=== PATIENT | male | born 1990 | race Caucasian/White ===

== ENCOUNTER → 2022-04-05 | Outpatient (CLI) | payer OTHER, SELFPAY ==
--- NOTE | 2022-04-05 09:43 | RAD_ITS ---
EXAM: XR CERVICAL SPINE, 4 OR 5 VIEWS CLINICAL INDICATION: SUSPECTED L THORACIC SYNDROME TECHNIQUE: Frontal, lateral and bilateral oblique views of the cervical spine. This report was created using [employer] report generation technology. COMPARISON: None. FINDINGS: VERTEBRAE: Unremarkable. Preserved vertebral body height. No acute fracture. No spondylolisthesis. Preservation of the normal cervical lordosis. No significant facet arthropathy. DISC SPACES: Unremarkable. Disc spaces are maintained. SOFT TISSUES: Unremarkable. No prevertebral soft tissue widening. LUNG APICES: Clear. RAD/Cerv Spine 4 or 5 Views IMPRESSION: No evidence of acute fracture or spondylolisthesis. Electronically Signed: Dominguez Marsh MD at 16:58 EST ,
== END | disposition home or self-care (01) ==
PROVIDERS: PCP Family Medicine; Referring Provider Family Medicine; Visit Provider Family Medicine
DX: G54.0 Brachial plexus disorders (principal)
CPT/HCPCS: 72050

== ENCOUNTER → 2022-04-17 | Outpatient (CLI) | payer OTHER, SELFPAY ==
--- NOTE | 2022-04-17 13:55 | ART_ITS ---
Reason For Study: Left arm pain Procedure A bilateral upper extremity continuous wave Doppler with analog waveform analysis and segmental pressures. Performed with thoracic outlet syndrome protocol. Left Segmental Pressures Left brachial= 134mmHg. Left ulnar= 158mmHg. Left radial= 158mmHg. The left radial waveforms are triphasic. The left ulnar waveforms are triphasic. Right Segmental Pressures Right brachial= 138mmHg. Right ulnar= 155mmHg. Right radial= 175mmHg. The right radial waveforms are triphasic. The right ulnar waveforms are triphasic. Indices The right wrist-brachial index by the ulnar artery is 1.12. The right wrist-brachial index by the radial artery is 1.27. The left wrist-brachial index by the ulnar artery is 1.14. The left wrist- brachial index by the radial artery is 1.14. VL/Upper Extremity Arterial Study Interpretation Summary Right wrist-brachial index 1.27 , normal. Doppler/PVR waveforms of the right ar m normal at rest. No change in arterial waveforms on the right provoked by maneuvers. Left wrist-brachial index 1.14, normal. Doppler/PVR waveforms of the left arm n ormal at rest. No change in arterial waveforms on the left provoked by maneuvers. Ordering Physician: Gareth Clancy Referring Physician: Gareth Clancy Performed By: Jacque Hernandez RVT
== END | disposition home or self-care (01) ==
PROVIDERS: PCP Family Medicine; Referring Provider Family Medicine; Visit Provider Family Medicine
DX: M79.602 Pain in left arm (principal); G54.0 Brachial plexus disorders
CPT/HCPCS: 93923

== ENCOUNTER 2022-07-14 08:00 | Outpatient (RCR) | payer OTHER, SELFPAY ==
--- NOTE | 2022-04-28 08:48 | HP.PTEVAL ---
Patient's Visit Information MIGUE ARIAS is a 32 year old M referred to Physical Therapy by Dr. Gareth Clancy DO with a diagnosis of L arm pain. Date of Evaluation: 04/28/22 Physical Therapist: ANA DeanT, OCS, CSCS - Visit Plan Frequency: 2x /Week Duration: 4-6 Weeks Plan: 2x/week for 3-6 for. 1. STM and thermal US to L neck, stretch UT and lev scap L, work on ext rotation of L shoulder PROM. 2. strengthen posture and RC and progress to HEP. - Subjective Broke collarbone and shoulder in HS. Has had progressive pain over the last year with more pain in L shoulder and it has moved down with tingling into arm and hand and up into L side of neck. Can do his job but is defintiely uncomfortable. 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 had an US for nerve check and was OK but may need MRI. Had x ray shoulder and neck and OK. Sleep can wake up with tingling many nights.has had that for years. Neck started hurting at New Years for no reason. Basic aDLs are fine. Hobbies: hunting fishing are going OK but uncomfy. - Pain L arm Pain Intensity (Out of 10): 0 Pain Intensity Range: 0, 6 Comment: tingly in hand slightly - Objective Walks and trasnfers bed and chair without difficulty. Posture is slightly forward head and tilts head L slightly. cervical AROM is WFL at 70 ext, 60 L rotation and 80 R rotation with just some pulling L neck. SB are full but tight on L UT. - c/s compression test, only discomfort with stretch L neck. UE AROM WFL shoulder flex and IR symmterical, only ext rotation at neutral and 90 limited 5 degrees on L vs R and feels tight. Elbow and wrist AROM WFL. Tender slightly in L UT and lev scap. reflexes 2/3 bi and tri B. Sensation UE WNL to gross light touch. Strength wrist and elbows 5/5, rotators shoulder 4 B and popping on L with excessive humeral head movement. 4+ L elevation adn 5 R. - HK, - neer, - ext rotation lag, - drop arm. slight positive sulcus L. - Balance/Special Test Scores Quick DASH Score: 15.9075 - Goals Goal 1:: Full aROM L shoulder and neck without tightness or pain Goal Time Frame: 4-6 Weeks Goal 2:: Pt feel tingling and neck pain abolished and shoulder 755 improved to 2/10 at worst. Goal Time Frame: 4-6 Weeks Goal 3:: Sleep without waking due to or with discomfort Goal Time Frame: 4-6 Weeks Goal 4:: Quick dash score 12 or better Goal Time Frame: 4-6 Weeks Goal 5:: I hep to minimize future problems of stretch neck adn strength posture and cuff. Goal Time Frame: 4-6 Weeks - Rehabilitation Potential Physical Therapy Diagnosis: Likely soft tissue L neck and shoulder inflammation causing pain. Rehabilitation Potential: Good - Anticipated Interventions Patient/Client Instruction: Educate patient on: Condition, Plan of Care For the Purpose of:: To decrease pain, To increase ROM, To improve nutrient delivery to tissue, To improve muscle performance and motor function, To increase tolerance to activity/condition/position Therapeutic Exercise to Include: Strength training, Postural training, Flexibilty training, Passive ROM, Active ROM For the Purpose of:: To decrease pain, To increase ROM, To improve muscle performance and motor function, To increase tolerance to activity/condition/position, To improve gait and locomotor functions Manual Therapy Techniques to Include: Mobilization, Soft tissue mobilization For the Purpose of:: To decrease pain, To increase ROM Ultrasound (thermal/non thermal): Yes - nonthermal L lev scap/UT For the Purpose of:: To decrease pain, To decrease swelling/inflammation, To improve nutrient delivery to tissue Thank you for the opportunity to evaluate your patient. For Medicare and Medicare HMO plans, please review the plan of care and approve it. It will need to be FAXED BACK to us at [phone] for Medicare purposes. For Medicare only, by signing this I certify the plan of care. Please let me know if there are questions or concerns regarding this plan of care. Physician Signature: Date:
--- NOTE | 2022-06-02 08:26 | HP.PTREVAL_ITS ---
Dr. Gareth Clancy, DO, It has been my pleasure to treat MIGUE ARIAS over the last 7 visits for L arm pain. Please see the progress note below for an update on the physical therapy plan of care! Subjective: I feel much better. Tingling and numbness is mostly gone and only intermittent adn less intense. mornings much easier. Tingling is daily but does not last long when he modifies activity and stretches. Neck pain is intermittent and still an issue with sharp pains on L side into scap and intermittent MUNOZ. Objective/Function: 80 B rotation c/s and 80 extension without pain today. UE AROM symmetrical and WFL on ext rotation and others. 4+/5 UE strength without myotomal problems. Doing very well and wishes to try at home vs continued PT and f/u in 3 weeks. this is appropriate. Plan Plan: f/u 3 weeks to ensure progress and possibly teach TB adduction, pull downs, ext rotation and prone ex if needed. Balance/Gait/Functional tests - Balance/Special Test Scores Quick DASH Score: 11.3625 Goals Goal 1:: Full aROM L shoulder and neck without tightness or pain Goal Time Frame: 4-6 Weeks Goal Progress: Goal Met Goal 2:: Pt feel tingling and neck pain abolished and shoulder 755 improved to 2/10 at worst. Goal Time Frame: 4-6 Weeks Goal Progress: Progressing Goal 3:: Sleep without waking due to or with discomfort Goal Time Frame: 4-6 Weeks Goal Progress: Progressing Goal 4:: Quick dash score 12 or better Goal Time Frame: 4-6 Weeks Goal Progress: Not Progressing Goal 5:: I hep to minimize future problems of stretch neck adn strength posture and cuff. Goal Time Frame: 4-6 Weeks Goal Progress: Goal Met Anticipated Interventions Patient/Client Instruction: Educate patient on: Condition, Plan of Care For the Purpose of:: To decrease pain, To increase ROM, To improve nutrient delivery to tissue, To improve muscle performance and motor function, To increase tolerance to activity/condition/position Therapeutic Exercise to Include: Strength training, Postural training, Flexibilty training, Passive ROM, Active ROM For the Purpose of:: To decrease pain, To increase ROM, To improve muscle perf ormance and motor function, To increase tolerance to activity/condition/position, To improve gait and locomotor functions Manual Therapy Techniques to Include: Mobilization, Soft tissue mobilization For the Purpose of:: To decrease pain, To increase ROM Ultrasound (thermal/non thermal): Yes - nonthermal L lev scap/UT For the Purpose of:: To decrease pain, To decrease swelling/inflammation, To improve nutrient delivery to tissue Please do not hesitate to contact me at [phone] by phone or if you have questions or concerns regarding this new plan of care! Sincerely, Silvano Mccullough, DPT, OCS, CSCS
--- NOTE | 2022-06-22 07:55 | HP.PTREVAL_ITS ---
Dr. Gareth Clancy, DO, It has been my pleasure to treat MIGUE ARIAS over the last 8 visits for L arm pain. Please see the progress note below for an update on the physical therapy plan of care! Subjective: Still about the same as last time. Still minor sharp pain with lifting hand to head. Still gets tingling adn numbness with exercises. Sharp pain on L side of neck into shoulder with stretches and looking down and to the right. Talked with Aston and Objective/Function: 85 AROM B rotation with slight end range r pain on L side trasniently, no tingling today. Full ext 85 without pain. Max tender and knots in l lev scap. Overall ROM great but still some pain with lev scap interaactions and knots. Plan Plan: 2x/week for 2-4 weeks for. 1. US thermal to L lev scap. 2. DTR to same. Monitor home strength and stretching for progression needs. Add rhomboid stretching next session. New goals and POC and fair prognosis based on only soft tissue problems in evaluation today. Balance/Gait/Functional tests - Balance/Special Test Scores Quick DASH Score: 11.3625 Goals Goal 1:: Full aROM L shoulder and neck without tightness or pain Goal Time Frame: 4-6 Weeks Goal Progress: Goal Met Goal 2:: Pt feel tingling and neck pain abolished and shoulder 755 improved to 2/10 at worst. Goal Time Frame: 4-6 Weeks Goal Progress: Progressing, approp Goal 3:: Sleep without waking due to or with discomfort Goal Time Frame: 4-6 Weeks Goal Progress: Goal Met Goal 4:: Quick dash score 12 or better Goal Time Frame: 4-6 Weeks Goal Progress: Not Progressing Goal 5:: I hep to minimize future problems of stretch neck adn strength posture and cuff. Goal Time Frame: 4-6 Weeks Goal Progress: Goal Met Goal 6:: Tenderness in L lev scap and pain with stretch and contraction gone. Goal Time Frame: 2-4 Weeks Goal Progress: NEW GOAL Anticipated Interventions Patient/Client Instruction: Educate patient on: Condition, Plan of Care For the Purpose of:: To decrease pain, To increase ROM, To improve nutrient delivery to tissue, To improve muscle performance and motor function, To increa se tolerance to activity/condition/position Therapeutic Exercise to Include: Strength training, Postural training, Flexibilty training, Passive ROM, Active ROM For the Purpose of:: To decrease pain, To increase ROM, To improve muscle performance and motor function, To increase tolerance to activity/condition/position, To improve gait and locomotor functions Manual Therapy Techniques to Include: Mobilization, Soft tissue mobilization For the Purpose of:: To decrease pain, To increase ROM Ultrasound (thermal/non thermal): Yes - nonthermal L lev scap/UT For the Purpose of:: To decrease pain, To decrease swelling/inflammation, To improve nutrient delivery to tissue Please do not hesitate to contact me at [phone] by phone or if you have questions or concerns regarding this new plan of care! Sincerely, Silvano Mccullough, DPT, OCS, CSCS
--- NOTE | 2022-07-14 08:27 | HP.PTDCSUM ---
It has been my pleasure to treat MIGUE ARIAS referred by Dr. Gareth Clancy DO, with the diagnosis of L arm pain for a total of 13 visit(s). Discharge Date: 07/14/22 Please see the following information for a summary of their discharge status. Subjective: Not improving. Still gets some tingling adn numb in L fingers. That happened 2x last week. Pinching in L neck persists and gives MUNOZ. Gets 5/10 pinching most of the day almost daily. No reason that two days this week were worse than normal. Is better than April but not than last recheck.Treatment days feel better. Doing band exercises at home and using lacrosse ball for DTR. L arm Pain Intensity (Out of 10): 2 % Improvement: 20 Objective/Function: ROM neck is excellent and full at 170 extension(possible slight R deviation but not painful, B rotations to 85 degrees. SB full. Some tenderness L UT and rhomboids but not terrible. Full UE AROM. Pt overall not different than last recheck but better with tingling overall. No explanation from him on what might cause his intermittent MUNOZ, neck paina nd tingly days which still happen weekly. He has a demanding job that may require more strength in neck and scap but has not helped tremendously in the last month. Goal 1:: Full aROM L shoulder and neck without tightness or pain Goal Progress: Goal Met Goal 2:: Pt feel tingling and neck pain abolished and shoulder 755 improved to 2/10 at worst. Goal Progress: Progressing, approp Goal 3:: Sleep without waking due to or with discomfort Goal Progress: Goal Met Goal 4:: Quick dash score 12 or better Goal Progress: Not Progressing Goal 5:: I hep to minimize future problems of stretch neck adn strength posture and cuff. Goal Progress: Goal Met Goal 6:: Tenderness in L lev scap and pain with stretch and contraction gone. Goal Progress: NEW GOAL Plan: d/c, pt to schedule with doctor for next step/diagnostics. Discharge Comments: Pt to contact doctor for next medical step If there are questions or concerns regarding this patient's physical therapy, please feel free to call me at [phone]. Thank you for the referral of this patient. Sincerely, Silvano Mccullough, DPT, OCS, CSCS Balance/Gait/Functional tests - Balance/Special Test Scores Quick DASH Score: 11.3627
== END 2022-07-14 08:34 | disposition home or self-care (01) ==
LOC: PT 08:00
PROVIDERS: PCP Family Medicine; Referring Provider Family Medicine; Visit Provider Family Medicine
DX: M79.602 Pain in left arm (principal); M54.2 Cervicalgia
CPT/HCPCS: 97035; 97110; 97140; 97161; 97164; 97530

== ENCOUNTER → 2022-08-17 | Outpatient (CLI) | payer OTHER, SELFPAY ==
--- NOTE | 2022-08-17 17:10 | MRI_ITS ---
STUDY: MRI CERVICAL SPINE WITHOUT CONTRAST REASON FOR EXAM: Male, 32 years old. NECK PAIN TECHNIQUE: Standardized fat and water weighted pulse sequences were obtained in the sagittal and axial planes. COMPARISON: Cervical spine radiographs 04/05/2022. FINDINGS: Normal foramen magnum and brainstem-cervical cord junction. Normal craniovertebral junction. Normal anterior atlantoaxial articulation. Normal odontoid process. Minimal cervical kyphosis at the C5-C6 disc space level. Normal vertebral bodies and posterior osseous elements. C2-3: Normal endplates. Normal disc height, signal and morphology. Normal central canal and intervertebral neural foramina. C3-4: Normal endplates. Normal disc height, signal and morphology. Normal central canal and intervertebral neural foramina. C4-5: Normal endplates. Normal disc height, signal and morphology. Normal central canal and intervertebral neural foramina. C5-6: Normal endplates. Normal disc height. Tiny ventral extradural defect is posterior bulging annulus. Normal central canal and intervertebral neural foramina. C6-7: Normal endplates. Normal disc height, signal and morphology. Normal central canal and intervertebral neural foramina. C7-T1: Normal endplates. Normal disc height, signal and morphology. Normal central canal and intervertebral neural foramina. T1-T2, T2-T3 and T3-T4: (Sagittal only). Normal endplates. Normal disc height, signal and morphology. No central canal and intervertebral neural foramina. Normal cervical cord. Normal included upper thoracic spinal cord. Normal included portions of brainstem and cerebellum. Normal midline pituitary gland, midline suprasellar cistern, midline pituitary stalk and anterior third ventricle. Normal visualized soft tissue structures. MRI/Spine Cervical (Routine) IMPRESSION: 1. No MRI evidence of cervical extruded disc fragment, disc protrusion, spinal stenosis or cervical nerve root displacement. 2. Tiny C5-C6 posterior bulging annulus. Electronically Signed: Jet Morales MD at 14:33 EDT ,
== END | disposition home or self-care (01) ==
LOC: MRI 17:06
PROVIDERS: PCP Family Medicine; Referring Provider Family Medicine; Visit Provider Family Medicine
DX: M54.2 Cervicalgia (principal)
CPT/HCPCS: 72141

== ENCOUNTER → 2024-04-18 | Outpatient (CLI) | payer OTHER, SELFPAY ==
[2024-04-18 12:53] LABS: Absolute Lymphocyte Count 3.28 X10^3/uL (0.83-4.51); Absolute Neutrophil Count 1.7 X10^3/uL (2.0-7.7); Basophil# 0.05 X10^3/uL; Basophil% 0.9 % (0-1); Eosinophil# 0.12 X10^3/uL; Eosinophils% 2.2 % (0-5); Hematocrit 44.4 % (40-54); Hemoglobin 14.4 g/dL (13.0-16.5); Lymphocyte # 3.28 X10^3/ul (0.83-4.51); Lymphocyte % 58.9 % (19-41); Mean Corp Hgb Conc 32.4 g/dL (32-36); Mean Corpuscular Hgb 30.6 pg (27.0-32.0); Mean Corpuscular Volume 94.3 fL (80-94); Mean Platelet Vol. 9.9 fl (6.2-12.0); Monocyte# 0.43 X10^3/uL; Monocyte% 7.7 % (0-10); NRBC Flagged by Analyzer 0 % (0-5); Neutrophil # 1.69 X10^3/uL (2.7-7.7); Neutrophil % 30.3 % (47-70); Platelet Count 204 K/mm3 (150-450); RBC Distribution Width CV 12.1 % (11.6-14.6); RBC Distribution Width SD 42.3 fl (35.1-43.9); Red Blood Count 4.71 M/mm3 (4.6-6.2); White Blood Count 5.6 K/mm3 (4.4-11.0)
[2024-04-18 14:09] LABS: ALB/GLOB Ratio 1.1 RATIO (0.9-2.4); AST(SGOT) 10 U/L (15-37); Alanine Aminotransfer ALT/SGPT 22 U/L (16-61); Albumin, Serum 3.5 g/dL (3.2-5.0); Alkaline Phosphatase 43 U/L (45-117); Anion Gap 5 (5-15); BUN 16 mg/dL (7-18); Calcium,Total 8.7 mg/dL (8.5-10.1); Chloride 107 mmol/L (98-107); Cholesterol 145 mg/dL (200); EST Glomerular Filtration Rate 90 mL/min (>60); Est Glom Filt Rate - Afr Amer 109 mL/min (>60); Globulin 3.1 g/dL (2.2-4.2); Glucose 73 mg/dL (74-106); High Density Lipoprotein 76 mg/dL; Potassium 4.4 mmol/L (3.5-5.1); Protein, Total 6.6 g/dL (6.4-8.2); Sodium Level 140 mmol/L (136-145); Triglycerides 156 mg/dL; Very Low Density Lipoprotein 31 mg/dL (5-40)
== END | disposition home or self-care (01) ==
LOC: BFHLAB 10:23
PROVIDERS: PCP Family Medicine; Visit Provider Family Medicine
DX: Z00.00 Encounter for general adult medical examination without abnormal findings (principal); R00.2 Palpitations
CPT/HCPCS: 36415; 80053; 80061; 84443; 85025